=== PATIENT | female | born 1965 | race Caucasian/White ===

== ENCOUNTER → 2023-06-13 06:30 | Day surgery (SDC) | payer BC, SELFPAY | LOC: GI 06:30 | PROVIDERS: ATTENDING PHYSICIAN Internal Medicine Gastroenterology; FAMILY PHYSICIAN Internal Medicine | DX: Z12.11 Encounter for screening for malignant neoplasm of colon (principal); K57.30 Diverticulosis of large intestine without perforation or abscess without bleeding; K64.0 First degree hemorrhoids | CPT/HCPCS: G0121 ==

== ENCOUNTER → 2024-02-17 07:47 | Outpatient (REF) | payer BC, SELFPAY ==
[2024-02-17 09:09] LABS: % Basophils 0.7 % (0-2); % Eosinophils 3.5 % (0-6); % Immature Granulocytes 0.2 % (0-0.5); % Monocytes 11.2 % (1.7-9.3); % Neutrophils 41.4 % (42.2-75.2); Absolute Eosinophils 0.2 10^3/uL (0-0.7); Absolute Lymphocytes 1.8 10^3/uL (1.2-3.4); Absolute Monocytes 0.5 10^3/uL (0.1-0.6); Absolute Neutrophils 1.8 10^3/uL (1.4-6.5); Hematocrit 40.7 % (37.0-47.0); Hemoglobin 13.7 g/dL (12.0-16.0); Mean Corp Hgb Conc. 33.7 g/dL (33.0-37.0); Mean Corpuscular Hgb 30.2 pg (27.0-31.0); Mean Corpuscular Volume 89.8 fL (81.0-99.0); Mean Platelet Volume 11.1 fL (7.4-10.4); Nucleated Red Blood Cells % 0 %; Platelet Count 219 10^3/uL (130-400); Red Blood Cell Count 4.53 10^6/uL (4.20-5.40); Red Cell Dist. Width 13.1 % (11.5-14.5); White Blood Cell Count 4.3 10^3/uL (4.8-10.8)
[2024-02-17 09:33] LABS: ALT (SGPT) 17 U/L (0-35); AST (SGOT) 29 U/L (14-36); Albumin 4.7 g/dl (3.5-5.0); Alkaline Phosphatase 70 U/L (38-126); Blood Urea Nitrogen 15 mg/dl (7-17); Calcium 9.8 mg/dl (8.4-10.2); Carbon Dioxide 26 mmol/L (22-30); Chloride 106 mmol/L (98-107); Glucose 85 mg/dl (70-99); Potassium 4.6 mmol/L (3.5-5.1); Sodium 145 mmol/L (135-145); Total Bilirubin 0.5 mg/dl (0.2-1.3); Total Cholesterol 290 mg/dl (50-199); Total Protein 7.4 g/dl (6.3-8.2); Triglyceride 66 mg/dl (10-149); Very Low Density Lipoprotein 13 mg/dl (0-30); eGFR > 60.00
[2024-02-17 09:43] LABS: HDL Cholesterol 128 mg/dl; LDL Cholesterol, Calculated 149 mg/dl
[2024-02-17 10:41] LABS: TSH 2.45 uIU/ml (0.47-4.68)
== END ==
LOC: HWLAB 07:47
PROVIDERS: ATTENDING PHYSICIAN Nurse Practitioner
DX: E78.5 Hyperlipidemia, unspecified (principal); R53.83 Other fatigue; Z00.00 Encounter for general adult medical examination without abnormal findings
CPT/HCPCS: 36415; 80053; 80061; 84443; 85025

== ENCOUNTER → 2024-04-10 07:28 | Outpatient (REF) | payer BC, SELFPAY | LOC: WDC 07:28 | PROVIDERS: ATTENDING PHYSICIAN Nurse Practitioner | DX: Z12.31 Encounter for screening mammogram for malignant neoplasm of breast (principal) | CPT/HCPCS: 77063; 77067 ==

== ENCOUNTER 2025-02-28 13:05 | Emergency (ER) | payer BC, SELFPAY ==
[2025-02-28 13:07] VITALS: BP 140/71
--- NOTE | 2025-02-28 13:34 | ED.MUSCINJ ---
HPI-Injury
General
Chief Complaint: Musculo-Skeletal Complaint
Source: patient
Exam Limitations: none
Time Seen by Provider: 02/28/25 13:12
Nursing documentation reviewed up to this point in time: agreed with
History of Present Illness-Injury
Initial Injury comments:
59-year-old female was in her yard playing football, jumped up to catch a football and her mini morse doodle's were wrestling around and tumbling and hit her in her left knee medial aspect and she fell. Has swelling and pain just below and medially
left knee, unable to weight bear due to pain and using own crutches.
Past History
Past History
ED Past Medical History: None
ED Past Surgical History: Urological (Removal of kidney stone)
Social History
Tobacco: Non-smoker
Alcohol: Occasional
Personal:
Living: with family
Employment: Not employed
Review of Systems
Review of Systems
Allergies reviewed?: Yes
All Other Systems: ROS reviewed and negative except as documented in HPI and ROS
Phy Exam
Physical Exam
Physical Exam:
PHYSICAL EXAMINATION:
General: no apparent distress, not acutely ill
Neuro: alert and oriented.
Psychiatric: well kept. interactive and cooperative
Musculoskeletal: Moves with ease. Left knee with mild infrapatellar swelling and tender to palpation medial aspect. Full ROM. Able to stand and weight bear fairly comfortably. Ambulation aggravates pain. Distal N/V intact.
Skin: Warm, pink.
Injury Course
Orders/Labs/Results
Orders:
Orders
02/28/25 13:09
CR Knee - Left 4 Or More View* Urgent
Comment:
Reason For Exam: injury
02/28/25 13:46
Jayant Wrap Left-Treatment ONCE
Knee Immobilizer Left-Treatmen ONCE
MDM/Problems Addressed
Differential Diagnosis Includes:
Contusion, sprain, meniscus tear
MDM/Problems Addressed:
59-year-old female was in her yard playing football, jumped up to catch a football and her mini morse doodle's were wrestling around and tumbling and hit her in her left knee medial aspect and she fell. Has swelling and pain just below and medially
left knee, unable to weight bear due to pain and using own crutches.
Jayant wrap applied, knee immobilizer applied and patient is ambulating well without her crutches after application.
*Pulse Oximetry
SaO2: 99
Oxygen Mode of Delivery: Room air
Patient hypoxic: not evaluated
*Critical Care Note
Total Time (30-74mins, 75-104mins- exclusive of procedures): Not Applicable
ED Attending Note
-
Portions of this chart may have been created with voice recognition software.� Occasional wrong word or��sound alike� substitutions may have occurred due to the inherent limitations of voice recognition software.
Discharge Plan
Departure
Patient Disposition: Home (Routine Discharge)
Date of Disposition: 02/28/25
Time of Disposition: 13:59
Patient with high blood pressure during this ER visit?: No
Condition: Good
Discharge Problem:
Soft tissue injury of left knee
Instructions: Contusion (DC), Knee Sprain (DC), Using Cold for Pain
Prescriptions:
No Action
metronidazole [Flagyl] 500 MG tablet
500 mg PO Q8 Qty: 30 0RF
dicyclomine 10 MG capsule
10 mg PO QIDPRN PRN (Reason: prn for cramps) Qty: 20 0RF
Referrals:
Darren Antonio MD [Active, Orthopedics] - As needed
Julissa Webb MD [Family Provider, Internal Medicine]
Activity Restrictions/Additional Instructions:
As we discussed, your knee x-ray shows nothing abnormal.
Wear the Jayant wrap for up to 5 days as needed for swelling, comfort and support, you may remove it sooner if improved
Wear the knee immobilizer at all times when up and around with gradually increasing weightbearing as comfort permits. When your knee starts feel better you may remove the knee immobilizer and walk to see how it feels
While you are resting and may open the knee immobilizer and apply cold compress to the knee 20 minutes off and on is much as you can for the next 2 days
Call and make an appointment to see the orthopedic doctor if your knee is not a lot better in 1 week or not 100% better in 3 weeks.
Tylenol or ibuprofen as needed for pain.
Interventions
Interventions:
*Risk Screen - Suicide Last Done: 02/28/25 13:07
*General Assessment Last Done: 02/28/25 13:07
*Neglect/Abuse Screening Last Done: 02/28/25 13:56
*ED COVID-19 Vaccine History Last Done: 02/28/25 13:07
*ED Influenza Vaccine History Last Done: 02/28/25 13:07
ED-Musculoskeletal Assessment Last Done: 02/28/25 13:56
Discharge Date and Time
Print Language: BURKINAN
== END 2025-02-28 14:06 | disposition home or self-care (01) ==
LOC: EMR 13:05
PROVIDERS: EMERGENCY PHYSICIAN Emergency Medicine; FAMILY PHYSICIAN Internal Medicine
DX: M25.562 Pain in left knee (principal); W19.XXXA Unspecified fall, initial encounter; Y93.61 Activity, american tackle football; Y93.72 Activity, wrestling; Z87.442 Personal history of urinary calculi
CPT/HCPCS: 99283; 73564